=== PATIENT | male | born 1955 | race Caucasian/White ===

== ENCOUNTER 2016-11-27 00:44 | Emergency (ER) | payer OTHER ==
[~2016-11-27] VITALS: Ht 167.6 cm; Wt 117.0 kg
[~2016-11-27 00:44] MED LIST: GLIP10 PO; METF500T4 PO; OMEPRAZOLE; SIMV-260 PO
[2016-11-27] MEDS ORDERED: LOSA25TA21 PO (00:55)
[2016-11-27] MEDS ORDERED: OMEP20 PO (00:55)
[2016-11-27] MEDS ORDERED: ATOR20TA65 PO (00:55)
[2016-11-27 01:02] LABS: GLUCOSE,POINT OF CARE 188 MG/DL (70-110)
[2016-11-27] MEDS ORDERED: KETOROLAC TROMETHAMINE 60 MG/2 ML VIAL IM ONE (04:30)
[2016-11-27 04:40] VITALS: BP 130/90
== END 2016-11-27 04:42 | disposition home or self-care (01) ==
LOC: EMS 00:45
DX: S20.212A Contusion of left front wall of thorax, initial encounter (principal); E11.9 Type 2 diabetes mellitus without complications; E78.00 Pure hypercholesterolemia, unspecified; I10 Essential (primary) hypertension; F17.210 Nicotine dependence, cigarettes, uncomplicated; W17.89XA Other fall from one level to another, initial encounter; Y93.89 Activity, other specified; Y92.098 Other place in other non-institutional residence as the place of occurrence of the external cause; Y99.8 Other external cause status
CPT/HCPCS: 71110; 82962; 96372; 99284; J1885

== ENCOUNTER 2017-02-15 15:42 | Inpatient (IN) | payer OTHER ==
[~2017-02-15] VITALS: Ht 167.6 cm; Wt 117.6 kg
[~2017-02-15 15:42] MED LIST changes: +ATOR20TA65 PO; +LOSA25TA21 PO; +OMEP20 PO; -OMEPRAZOLE; -SIMV-260 PO
[2017-02-15] MEDS ORDERED: DIAZEPAM 5 MG/ML 2 ML SYRINGE IVP ONE (18:00)
[2017-02-15] MEDS ORDERED: ONDANSETRON HCL 4 MG/2 ML VIAL IVP ONE (18:00)
[2017-02-15 18:03] LABS: INR 1.1 (0.9-1.1); PROTHROMBIN TIME 11.4 SEC (9.4-11.6)
[2017-02-15 18:06] LABS: BASOPHILS % (AUTO) 0.2 % (0.0-2.0); EOSINOPHILS % (AUTO) 1.5 % (1.0-6.0); HEMATOCRIT 49.2 % (41-53); HEMOGLOBIN 15.9 g/dL (13.5-17.5); MEAN CORPUSCULAR HEMOGLOBIN 29.1 pg (26.0-34.0); MEAN CORPUSCULAR HGB CONC 32.4 G/dL (31.0-37.0); MEAN CORPUSCULAR VOLUME 90 fL (80-100); MONOCYTES # (AUTO) 0.5 K/uL (0.1-1.0); MONOCYTES % (AUTO) 3.7 % (2.0-9.0); NEUTROPHILS # (AUTO) 9.8 K/uL (1.8-7.7); NEUTROPHILS % (AUTO) 72.6 % (40.0-70.0); RED BLOOD CELL COUNT(AUTO) 5.48 MIL/uL (4.50-5.90); RED CELL DISTRIBUTION WIDTH 13.5 % (11.5-14.5); WHITE BLOOD COUNT (AUTO) 15.4 K/uL (4.5-11.0)
[2017-02-15 18:23] LABS: ANION GAP 10 mmol/L (8-16); CALCIUM, TOTAL 9.5 mg/dL (8.8-10.5); CARBON DIOXIDE 27 mmol/L (22-29); CHLORIDE 101 mmol/L (98-107); CREATININE 0.92 mg/dL (0.60-1.30); GLOMERULAR FILTR. RATE CALC > 60 mL/min (>60); POTASSIUM 4.2 mmol/L (3.5-5.1); SODIUM SERUM 138 mmol/L (136-145); UREA NITROGEN, BLOOD 18 mg/dL (7-18)
[2017-02-15 18:29] LABS: ALANINE AMINOTRANSFERASE 35 U/L (12-78); ALBUMIN 3.6 g/dL (3.4-5.0); ASPARTATE AMINOTRANSFERASE 27 U/L (15-37); BILIRUBIN,TOTAL 0.6 mg/dL (0.1-1.0); TOTAL PROTEIN, SERUM 8.1 g/dL (6.4-8.2)
[2017-02-15 18:33] LABS: B-TYPE NATRIURETIC PEPTIDE 6 pg/mL (0-100)
[2017-02-15 19:03] LABS: PLATELET COUNT (AUTO) 162 K/uL (150-450)
[2017-02-15 19:05] LABS: RBC MORPHOLOGY COMMENT NORMAL RBC MORPH
[2017-02-15 19:06] LABS: APPEARANCE,URINE CLEAR (CLEAR); GLUCOSE, URINE (UA) NEGATIVE (NEGATIVE); KETONES,URINE NEGATIVE (NEGATIVE); LEUKOCYTE ESTERASE ,URINE NEGATIVE (NEGATIVE); OCCULT BLOOD,URINE NEGATIVE (NEGATIVE); PROTEIN,URINE SEE CONFIRM (NEGATIVE)
[2017-02-15 19:10] LABS: ADD UA MICROSCOPIC YES
[2017-02-15 19:11] LABS: RBC,URINE 0-2 /HPF (0-2); SQUAMOUS EPITHELIAL CELL,UR Rare /LPF (None Seen); SULFOSALICYLIC ACID,URINE 1+ (Negative)
[2017-02-15] MEDS ORDERED: CefTRIAXone 1 GM/DEXTROSE 50 ML IV ONE (19:30)
[2017-02-15] MEDS ORDERED: AZITHROMYCIN 500 MG/NS 250 ML IV ONE (19:30)
[2017-02-15] MEDS ORDERED: ACETAMINOPHEN 325 MG TABLET PO PRN (19:45)
[2017-02-15] MEDS ORDERED: 0.9% SODIUM CHLORIDE 10 ML SYRINGE IVP PRN (19:45)
[2017-02-15] MEDS ORDERED: SODIUM CHLORIDE 0.9% 1,000 ML IV ONE (19:45)
[2017-02-15] MEDS ORDERED: ONDANSETRON HCL 4 MG/2 ML VIAL IVP PRN (19:45)
[2017-02-15 21:00] VITALS: BP 150/88
[2017-02-15 23:01] VITALS: BP 138/65
[2017-02-16 03:59] VITALS: BP 118/57
[2017-02-16 06:52] LABS: GLUCOSE,POINT OF CARE 140 MG/DL (70-110)
[2017-02-16 07:24] VITALS: BP 148/76
[2017-02-16 10:53] LABS: GLUCOSE,POINT OF CARE 126 MG/DL (70-110)
[2017-02-16 11:04] VITALS: BP 113/58
[2017-02-16 14:28] LABS: GLUCOSE,POINT OF CARE 139 MG/DL (70-110)
[2017-02-16] MEDS ORDERED: ONDANSETRON HCL 4 MG/2 ML VIAL IVP PRN (14:45)
[2017-02-16] MEDS ORDERED: FAMOTIDINE 10 MG/ML 2 ML VIAL IVP SCH (14:45)
[2017-02-16] MEDS ORDERED: ACETAMINOPHEN 325 MG TABLET PO PRN (14:45)
[2017-02-16 16:16] VITALS: BP 146/88
[2017-02-16] MEDS: ATORVASTATIN CALCIUM 20 MG TABLET PO SCH (16:25)
[2017-02-16] MEDS: OMEPRAZOLE 20 MG CAPSULE PO SCH (16:25)
[2017-02-16] MEDS: AZITHROMYCIN 250 MG TABLET PO SCH (16:25)
[2017-02-16] MEDS: LOSARTAN POTASSIUM 25 MG TABLET PO SCH (16:25)
[2017-02-16] MEDS: MetFORMIN HCL 500 MG TABLET PO SCH (18:51)
[2017-02-16 19:34] VITALS: BP 140/72
[2017-02-16] MEDS ORDERED: CefTRIAXone 1 GM/DEXTROSE 50 ML IV SCH (20:00)
[2017-02-16] MEDS ORDERED: SODIUM CHLORIDE 0.9% 250 ML IV ONE (20:43)
[2017-02-16 23:25] VITALS: BP 111/55
[2017-02-17 04:43] VITALS: BP 107/67
[2017-02-17] MEDS ORDERED: INSULIN ASPART 100 UNITS/ML SQ PRN (07:00)
[2017-02-17] MEDS ORDERED: DEXTROSE 50%-WATER 25 GM/50 ML SYRINGE IVP PRN (07:00)
[2017-02-17 07:12] LABS: BASOPHILS # (AUTO) 0.03 K/uL (0.00-0.20); BASOPHILS % (AUTO) 0.3 % (0.0-2.0); EOSINOPHILS % (AUTO) 5.95 % (1.0-6.0); HEMATOCRIT 43.8 % (41-53); HEMOGLOBIN 14.5 g/dL (13.5-17.5); LYMPHOCYTES # (AUTO) 4.2 K/uL (1.0-4.8); LYMPHOCYTES % (AUTO) 36.1 % (22.0-44.0); MEAN CORPUSCULAR HEMOGLOBIN 30.1 pg (26.0-34.0); MEAN CORPUSCULAR HGB CONC 33.2 G/dL (31.0-37.0); MEAN CORPUSCULAR VOLUME 91 fL (80-100); MONOCYTES # (AUTO) 0.7 K/uL (0.1-1.0); MONOCYTES % (AUTO) 6.1 % (2.0-9.0); NEUTROPHILS % (AUTO) 51.6 % (40.0-70.0); PLATELET COUNT (AUTO) 221 K/uL (150-450); RED BLOOD CELL COUNT(AUTO) 4.84 MIL/uL (4.50-5.90); RED CELL DISTRIBUTION WIDTH 13.5 % (11.5-14.5); WHITE BLOOD COUNT (AUTO) 11.7 K/uL (4.5-11.0)
[2017-02-17 07:19] VITALS: BP 108/65
[2017-02-17 07:39] LABS: ALANINE AMINOTRANSFERASE 36 U/L (12-78); ALBUMIN 3.3 g/dL (3.4-5.0); ANION GAP 6 mmol/L (8-16); ASPARTATE AMINOTRANSFERASE 20 U/L (15-37); BILIRUBIN,TOTAL 0.4 mg/dL (0.1-1.0); CALCIUM, TOTAL 9.2 mg/dL (8.8-10.5); CARBON DIOXIDE 28 mmol/L (22-29); CHLORIDE 102 mmol/L (98-107); CHOL/HDL RATIO 3.9 (4.2-7.3); CREATININE 1.09 mg/dL (0.60-1.30); GLOMERULAR FILTR. RATE CALC > 60 mL/min (>60); SODIUM SERUM 136 mmol/L (136-145); TOTAL PROTEIN, SERUM 7.7 g/dL (6.4-8.2); UREA NITROGEN, BLOOD 22 mg/dL (7-18)
[2017-02-17 07:40] LABS: HEMOGLOBIN A1C 7.3 % (4.5-6.2)
[2017-02-17] MEDS: LOSARTAN POTASSIUM 25 MG TABLET PO SCH (08:31)
[2017-02-17] MEDS: OMEPRAZOLE 20 MG CAPSULE PO SCH (08:31)
[2017-02-17] MEDS: MetFORMIN HCL 500 MG TABLET PO SCH (08:31)
[2017-02-17] MEDS: AZITHROMYCIN 250 MG TABLET PO SCH (08:31)
[2017-02-17] MEDS: ATORVASTATIN CALCIUM 20 MG TABLET PO SCH (08:31)
[2017-02-17 12:32] LABS: GLUCOSE,POINT OF CARE 115 MG/DL (70-110)
[2017-02-17] MEDS ORDERED: LEVO500 PO (15:31)
== END 2017-02-17 16:00 | disposition home or self-care (01) | DRG 194 ==
LOC: EMS 15:44 → 5N 19:43
PROVIDERS: ADMIT Family Medicine; ATTEND Family Medicine
DX: J18.9 Pneumonia, unspecified organism (principal); Z68.41 Body mass index [BMI] 40.0-44.9, adult; E11.9 Type 2 diabetes mellitus without complications; E78.5 Hyperlipidemia, unspecified; E78.00 Pure hypercholesterolemia, unspecified; I10 Essential (primary) hypertension; F17.210 Nicotine dependence, cigarettes, uncomplicated; R07.89 Other chest pain; E66.9 Obesity, unspecified; H81.10 Benign paroxysmal vertigo, unspecified ear; Z79.84 Long term (current) use of oral hypoglycemic drugs; Z79.899 Other long term (current) drug therapy; Z82.49 Family history of ischemic heart disease and other diseases of the circulatory system; Z83.3 Family history of diabetes mellitus; Z90.49 Acquired absence of other specified parts of digestive tract; Z71.6 Tobacco abuse counseling
CPT/HCPCS: 82962; 83036; 83605; 83735; 87040; 93005; 93306; 96374; 96375; 97161; 99285; 99406; J0456; J0696; J2405; J3490; J7030; J7050

== ENCOUNTER 2018-04-29 09:27 | Emergency (ER) | payer BC, OTHER ==
[~2018-04-29] VITALS: Ht 162.6 cm; Wt 90.0 kg
[~2018-04-29 09:27] MED LIST changes: +LEVO500 PO; -METF500T4 PO; +METF500T6 PO
[2018-04-29] MEDS ORDERED: MECLIZINE HCL 25 MG TABLET PO ONE (10:00)
[2018-04-29 10:09] LABS: GLUCOSE,POINT OF CARE 128 MG/DL (70-110)
[2018-04-29 10:11] LABS: BASOPHILS % (AUTO) 0.8 % (0.0-2.0); EOSINOPHILS % (AUTO) 6.3 % (1.0-6.0); HEMATOCRIT 47.3 % (41-53); HEMOGLOBIN 16.4 g/dL (13.5-17.5); LYMPHOCYTES # (AUTO) 2.6 K/uL (1.0-4.8); LYMPHOCYTES % (AUTO) 29.4 % (22.0-44.0); MEAN CORPUSCULAR HEMOGLOBIN 30.6 pg (26.0-34.0); MEAN CORPUSCULAR HGB CONC 34.7 G/dL (31.0-37.0); MEAN CORPUSCULAR VOLUME 88 fL (80-100); MONOCYTES # (AUTO) 0.6 K/uL (0.1-1.0); MONOCYTES % (AUTO) 6.7 % (2.0-9.0); NEUTROPHILS % (AUTO) 56.8 % (40.0-70.0); PLATELET COUNT (AUTO) 235 K/uL (150-450); RED BLOOD CELL COUNT(AUTO) 5.36 MIL/uL (4.50-5.90); RED CELL DISTRIBUTION WIDTH 13.9 % (11.5-14.5)
[2018-04-29 10:21] LABS: ANION GAP 10 mmol/L (8-16); CALCIUM, TOTAL 9.1 mg/dL (8.8-10.5); CARBON DIOXIDE 27 mmol/L (22-29); CHLORIDE 100 mmol/L (98-107); CREATININE 1.02 mg/dL (0.60-1.30); GLOMERULAR FILTR. RATE CALC > 60 mL/min (>60); GLUCOSE,RANDOM 135 mg/dL (70-110); POTASSIUM 3.8 mmol/L (3.5-5.1); SODIUM SERUM 137 mmol/L (136-145); UREA NITROGEN, BLOOD 17 mg/dL (7-18)
[2018-04-29 10:31] LABS: ALANINE AMINOTRANSFERASE 34 U/L (12-78); ALBUMIN 3.3 g/dL (3.4-5.0); ALKALINE PHOSPHATASE 85 U/L (46-116); ASPARTATE AMINOTRANSFERASE 26 U/L (15-37); BILIRUBIN,TOTAL 0.6 mg/dL (0.1-1.0); CREATINE KINASE, TOTAL 58 U/L (39-308); TOTAL PROTEIN, SERUM 7.7 g/dL (6.4-8.2)
[2018-04-29 10:32] LABS: INR 1.1 (0.9-1.1); PROTHROMBIN TIME 11.4 SEC (9.4-11.6)
[2018-04-29 10:37] LABS: APPEARANCE,URINE CLEAR (CLEAR); BILIRUBIN,URINE NEGATIVE (NEGATIVE); GLUCOSE, URINE (UA) NEGATIVE (NEGATIVE); KETONES,URINE NEGATIVE (NEGATIVE); LEUKOCYTE ESTERASE ,URINE NEGATIVE (NEGATIVE); NITRATE,URINE NEGATIVE (NEGATIVE); OCCULT BLOOD,URINE NEGATIVE (NEGATIVE); PROTEIN,URINE SEE CONFIRM (NEGATIVE)
[2018-04-29 10:39] LABS: B-TYPE NATRIURETIC PEPTIDE 9 pg/mL (0-100)
[2018-04-29 10:39] LABS: SULFOSALICYLIC ACID,URINE 2+ (Negative)
[2018-04-29 10:41] LABS: BACTERIA,URINE Few /HPF (None Seen)
[2018-04-29 10:42] LABS: MUCUS,URINE Few LPF (None Seen); SQUAMOUS EPITHELIAL CELL,UR Rare /LPF (None Seen)
[2018-04-29 15:20] VITALS: BP 149/81
== END 2018-04-29 15:30 | disposition home or self-care (01) ==
LOC: EMS 09:29
DX: R42 Dizziness and giddiness (principal); R07.9 Chest pain, unspecified; R20.0 Anesthesia of skin; F17.210 Nicotine dependence, cigarettes, uncomplicated; E11.9 Type 2 diabetes mellitus without complications; I10 Essential (primary) hypertension; E78.00 Pure hypercholesterolemia, unspecified; Z79.899 Other long term (current) drug therapy
CPT/HCPCS: 93005; 99285

== ENCOUNTER 2019-08-26 21:52 | Emergency (ER) | payer MEDICARE, OTHER ==
[~2019-08-26] VITALS: Ht 167.6 cm; Wt 109.1 kg
[~2019-08-26 21:52] MED LIST changes: -LEVO500 PO; -LOSA25TA21 PO; +LOSA25TA41 PO; +METF-960 PO; -METF500T6 PO
[2019-08-27] MEDS ORDERED: KETOROLAC TROMETHAMINE 30 MG/ML VIAL IM ONE (00:30)
[2019-08-27 02:40] VITALS: BP 135/80
== END 2019-08-27 03:00 | disposition home or self-care (01) ==
LOC: EMS 21:53
DX: S20.211A Contusion of right front wall of thorax, initial encounter (principal); E11.9 Type 2 diabetes mellitus without complications; I10 Essential (primary) hypertension; E78.00 Pure hypercholesterolemia, unspecified; F17.210 Nicotine dependence, cigarettes, uncomplicated; Z79.84 Long term (current) use of oral hypoglycemic drugs; V89.9XXA Person injured in unspecified vehicle accident, initial encounter; Y93.89 Activity, other specified; Y92.89 Other specified places as the place of occurrence of the external cause; Y99.8 Other external cause status
CPT/HCPCS: 71250; 74177; 96372; 99284; J1885; 72192; 74150

== ENCOUNTER 2020-04-30 16:09 | Emergency (ER) | payer MEDICARE, OTHER ==
[~2020-04-30] VITALS: Ht 157.5 cm; Wt 110.5 kg
[~2020-04-30 16:09] MED LIST changes: -LOSA25TA41 PO; +LOSA25TA71 PO
[2020-04-30 17:27] VITALS: BP 128/64
== END 2020-04-30 17:43 | disposition home or self-care (01) ==
LOC: EMS 17:19
DX: U07.1 COVID-19 (principal); R53.1 Weakness; R11.0 Nausea; E11.9 Type 2 diabetes mellitus without complications; E78.00 Pure hypercholesterolemia, unspecified; I10 Essential (primary) hypertension; F17.210 Nicotine dependence, cigarettes, uncomplicated; Z79.84 Long term (current) use of oral hypoglycemic drugs
CPT/HCPCS: 82962; 99283; U0003

== ENCOUNTER 2022-08-23 09:55 | Emergency (ER) | payer MEDICARE, OTHER ==
[~2022-08-23] VITALS: Ht 154.9 cm; Wt 96.4 kg
[~2022-08-23 09:55] MED LIST changes: -GLIP10 PO; +GLIP10TA10 PO; +LOSA-381 PO; -LOSA25TA71 PO; +METF-1211 PO; -METF-960 PO
[2022-08-23] MEDS ORDERED: LIDOCAINE 2% VISCOUS 15 ML SOLUTION UDCUP PO ONE (12:00)
[2022-08-23] MEDS ORDERED: MAG HYDROX/AL HYDROX/SIMETH ES 30 ML SUSPENSION UDCUP PO ONE (12:00)
[2022-08-23 12:31] LABS: BASOPHILS % (AUTO) 0.7 % (0.0-2.0); EOSINOPHILS % (AUTO) 1.3 % (1.0-6.0); HEMATOCRIT 53.8 % (41-53); LYMPHOCYTES # (AUTO) 2.9 K/uL (1.0-4.8); LYMPHOCYTES % (AUTO) 23.6 % (22.0-44.0); MEAN CORPUSCULAR HEMOGLOBIN 30.4 pg (26.0-34.0); MEAN CORPUSCULAR HGB CONC 33.5 G/dL (31.0-37.0); MEAN CORPUSCULAR VOLUME 91 fL (80-100); MONOCYTES % (AUTO) 8.2 % (2.0-9.0); NEUTROPHILS # (AUTO) 8.3 K/uL (1.8-7.7); NEUTROPHILS % (AUTO) 66.2 % (40.0-70.0); PLATELET COUNT (AUTO) 262 K/uL (150-450); RED BLOOD CELL COUNT(AUTO) 5.93 MIL/uL (4.50-5.90); RED CELL DISTRIBUTION WIDTH 14.1 % (11.5-14.5)
[2022-08-23 12:42] LABS: ANION GAP 10 mmol/L (8-16); CALCIUM, TOTAL 9.5 mg/dL (8.8-10.5); CARBON DIOXIDE 25 mmol/L (22-29); CHLORIDE 99 mmol/L (98-107); CREATININE 0.98 mg/dL (0.60-1.30); GLUCOSE,RANDOM 122 mg/dL (70-110); POTASSIUM 4.1 mmol/L (3.5-5.1); SODIUM SERUM 134 mmol/L (136-145); UREA NITROGEN, BLOOD 12 mg/dL (7-18)
[2022-08-23 12:43] LABS: GLOMERULAR FILTR. RATE CALC > 60 mL/min (>60)
[2022-08-23 12:48] LABS: ALANINE AMINOTRANSFERASE 16 U/L (12-78); ALBUMIN 3.1 g/dL (3.4-5.0); ALKALINE PHOSPHATASE 89 U/L (46-116); ASPARTATE AMINOTRANSFERASE 18 U/L (15-37); BILIRUBIN,TOTAL 0.6 mg/dL (0.1-1.0)
[2022-08-23 13:07] LABS: LIPASE 3259 U/L (73-393)
[2022-08-23] MEDS ORDERED: SODIUM CHLORIDE 0.9% 1,000 ML IV ONE ×2 (14:45)
[2022-08-23] MEDS ORDERED: PERCT PO (17:36)
[2022-08-23 17:49] VITALS: BP 160/80
== END 2022-08-23 20:37 | disposition home or self-care (01) ==
LOC: EMS 10:32
DX: K85.90 Acute pancreatitis without necrosis or infection, unspecified (principal); E11.9 Type 2 diabetes mellitus without complications; E78.00 Pure hypercholesterolemia, unspecified; I10 Essential (primary) hypertension; Z90.49 Acquired absence of other specified parts of digestive tract
CPT/HCPCS: 99285; 96360; 76705; 96361; 80053; 82962; 83690; 84484; 85025; 36415; 93005; G0480; J7030